=== PATIENT | male | born 1995 | race Two or more races ===

== ENCOUNTER 2016-05-26 20:09 | Emergency (ER) | payer MEDICAID ==
[~2016-05-26] VITALS: Ht 167.6 cm; Wt 70.3 kg
[2016-05-26 20:30] VITALS: BP 115/43
[2016-05-26] MEDS ORDERED: KETOROLAC TROMETH 60MG/2ML VIAL IM ONE (21:45)
== END 2016-05-26 21:42 | disposition home or self-care (01) ==
LOC: ER 20:15
DX: S96.911A Strain of unspecified muscle and tendon at ankle and foot level, right foot, initial encounter (principal); W10.9XXA Fall (on) (from) unspecified stairs and steps, initial encounter; Y93.89 Activity, other specified; Y99.8 Other external cause status; Y92.89 Other specified places as the place of occurrence of the external cause
CPT/HCPCS: 73610; 73630; 96372; 99284; J1885